=== PATIENT | female | born 1955 | race African-American/Black ===

== ENCOUNTER 2017-03-04 21:48 | Inpatient (IN) ==
[2017-03-04] MEDS ORDERED: hydrALAZINE 20 MG/1 ML VIAL IV STA (23:08)
[2017-03-05] MEDS ORDERED: hydrALAZINE 20 MG/1 ML VIAL ONE
[2017-03-05 00:14] LABS: Basophils % 0.3 % (0.0-0.8); Eosinophils # 0.3 10*3/uL (0.0-0.87); Eosinophils % 4.3 % (0.00-10.9); Hematocrit 46.4 VOL% (35.7-47.0); Hemoglobin 15.5 GM/DL (12.0-16.0); Immature Granulocytes % 0.2 %; Immature Granulocytes Absolute 0.01 #; Lymphocytes # 1.1 10*3/uL (1.4-4.0); Lymphocytes % 17.9 % (21.3-54.2); Mean Corpuscular HGB Conc 33.4 GM/DL (32-36); Mean Corpuscular Hemoglobin 29 PG (27-34); Mean Corpuscular Volume 87.4 FL (87-102); Mean Platelet Volume 9.1 FL (9.6-12.0); Monocytes # 0.7 10*3/uL (0.11-0.8); Monocytes % 11.7 % (1.7-12.7); Neutrophils # 3.9 10*3/uL (1.4-7.4); Neutrophils % 65.6 % (38.7-73.9); Platelet Count 226 T/CUMM (130-400); Red Blood Count 5.31 MC/CUMM (3.8-5.5); Red Cell Distribution Width 12.6 % (9.3-17.3); White Blood Count 5.9 T/CUMM (4-12)
[2017-03-05 00:26] LABS: Apearance,Urine CLOUDY (Clear); Bacteria,Urine Few /HPF (Few); Bilirubin,Urine Negative (Negative); Blood, Urine Negative (Negative); Glucose,Urine (UA) Negative (Negative); Ketones,Urine Negative (Negative); Mucus,Urine Occasional /LPF (Occasional); Nitrite,Urine Negative (Negative); Protein,Urine Negative; RBC,Urine 5 /HPF (0-4); Squamous Epithelial Cell,Urine Occasional /HPF (0-10); Urine Color Yellow (Yellow); Urine Specific Gravity 1.002 (1.001-1.035); Urine Urobilinogen < 2.0 EU/DL (0.2-1.0); WBC,Urine 3 /HPF (0-6)
[2017-03-05 00:31] LABS: PT Patient Result 10.1 SECS; Partial Thromboplastin Time 26.8 SECS (0-40)
[2017-03-05 00:48] LABS: Alanine Aminotransferase 39 U/L (13-56); Albumin 3.7 G/DL (3.4-5.0); Alkaline Phosphatase 182 U/L (45-117); Aspartate Amino Transferase 59 U/L (0-37); Blood Urea Nitrogen 8 MG/DL (7-18); Calcium 9.2 MG/DL (8.5-10.1); Glucose 88 MG/DL (74-106); Magnesium 1.9 MG/DL (1.8-2.4); Osmolality,Calculated 275.4 MOS/KG (273-304); Potassium 3.7 MMOL/L (3.5-5.1); Sodium 140 MMOL/L (136-145); Total Protein 7.5 G/DL (6.4-8.3); Troponin I Only < 0.015 NG/ML (0.00-0.045)
[2017-03-05] MEDS ORDERED: ALBUTEROL/IPRATROPIUM 3 ML NEB RESP TX STA (02:04)
[2017-03-05] MEDS ORDERED: SODIUM CHLORIDE 0.9% 500 ML IV STA (02:13)
[2017-03-05] MEDS ORDERED: ONDANSETRON 4 MG/2 ML VIAL IV PRN (02:48)
[2017-03-05] MEDS ORDERED: ACETAMINOPHEN 325 MG TABLET PO PRN (02:48)
[2017-03-05] MEDS ORDERED: methylPREDNISolone SOD SUC 125 MG/2 ML VIAL IV STA (02:51)
[2017-03-05] MEDS ORDERED: NITROGLYCERIN SL 0.4 MG TABLET SL PRN (03:04)
[2017-03-05] MEDS ORDERED: AZITHROMYCIN 500 MG VIAL IV ONE (03:38)
[2017-03-05] MEDS ORDERED: methylPREDNISolone SOD SUC 125 MG/2 ML VIAL ONE (03:38)
[2017-03-05] MEDS ORDERED: ENOXAPARIN 40 MG/0.4 ML SYRINGE ONE (03:38)
[2017-03-05] MEDS ORDERED: niCARdipine 25 MG/10 ML VIAL IV ONE ×3 (03:38→14:18)
[2017-03-05] MEDS: niCARdipine INJ 25 MG in SODIUM CHLORIDE 0.9% 240 ML IV SCH ×2 (04:05→20:45)
[2017-03-05] MEDS: AZITHROMYCIN INJ 500 MG in SODIUM CHLORIDE 0.9% 250 ML IV SCH (04:05)
[2017-03-05] MEDS: ENOXAPARIN 40 MG/0.4 ML SYRINGE SUBCUT SCH (04:05)
[2017-03-05 04:19] LABS: Basophils % 0.5 % (0.0-0.8); Eosinophils # 0.3 10*3/uL (0.0-0.87); Eosinophils % 4.4 % (0.00-10.9); Hematocrit 48.9 VOL% (35.7-47.0); Immature Granulocytes % 0.4 %; Immature Granulocytes Absolute 0.02 #; Lymphocytes # 1.1 10*3/uL (1.4-4.0); Mean Corpuscular HGB Conc 32.7 GM/DL (32-36); Mean Corpuscular Hemoglobin 29 PG (27-34); Mean Corpuscular Volume 89.6 FL (87-102); Mean Platelet Volume 9.2 FL (9.6-12.0); Monocytes # 0.6 10*3/uL (0.11-0.8); Monocytes % 11.1 % (1.7-12.7); Neutrophils # 3.7 10*3/uL (1.4-7.4); Neutrophils % 64.6 % (38.7-73.9); Platelet Count 226 T/CUMM (130-400); Red Blood Count 5.46 MC/CUMM (3.8-5.5); Red Cell Distribution Width 12.5 % (9.3-17.3); White Blood Count 5.7 T/CUMM (4-12)
[2017-03-05] MEDS: ALBUTEROL/IPRATROPIUM 3 ML NEB RESP TX SCH ×5 (04:19→20:17)
[2017-03-05 04:38] LABS: Calcium 9.1 MG/DL (8.5-10.1); Osmolality,Calculated 276.4 MOS/KG (273-304); Potassium 3.6 MMOL/L (3.5-5.1); Risk Ratio 3.23; Thyroid Stimulating Hormone 0.727 uIU/ml (0.358-3.74); VLDL CHOLESTEROL 21.2 MG/DL
[2017-03-05] MEDS: ASPIRIN CHEW 81 MG TABLET PO SCH (09:30)
[2017-03-05] MEDS ORDERED: ASPIRIN CHEW 81 MG TABLET PO ONE (09:33)
[2017-03-05] MEDS ORDERED: methylPREDNISolone SOD SUC 40 MG/1 ML VIAL ONE (09:33)
[2017-03-05] MEDS: methylPREDNISolone SOD SUC 40 MG/1 ML VIAL IV SCH ×2 (09:45→17:39)
[2017-03-05] MEDS: guaiFENesin 200 MG/10 ML UDCUP PO PRN (17:39)
[2017-03-05] MEDS: cefTRIAXone 1,000 MG in SYRINGE 1 EACH IV SCH (17:39)
[2017-03-06] MEDS: niCARdipine INJ 25 MG in SODIUM CHLORIDE 0.9% 240 ML IV SCH ×3 (02:05→08:34)
[2017-03-06] MEDS: methylPREDNISolone SOD SUC 40 MG/1 ML VIAL IV SCH ×3 (03:21→18:13)
[2017-03-06] MEDS: ENOXAPARIN 40 MG/0.4 ML SYRINGE SUBCUT SCH (03:23)
[2017-03-06] MEDS: AZITHROMYCIN INJ 500 MG in SODIUM CHLORIDE 0.9% 250 ML IV SCH (04:29)
[2017-03-06] MEDS: guaiFENesin 200 MG/10 ML UDCUP PO PRN ×2 (08:33→21:53)
[2017-03-06] MEDS: ASPIRIN CHEW 81 MG TABLET PO SCH (08:33)
[2017-03-06] MEDS ORDERED: ASPIRIN EC 81 MG TABLET PO SCH (11:00)
[2017-03-06] MEDS: LISINOPRIL/HCTZ 20-12.5 MG TABLET PO SCH (11:21)
[2017-03-06] MEDS ORDERED: METOPROLOL TARTRATE 25 MG TABLET PO SCH (12:00)
[2017-03-06] MEDS ORDERED: DILTIAZEM CD 180 MG CAPSULE PO SCH (14:30)
[2017-03-06] MEDS: cefTRIAXone 1,000 MG in SYRINGE 1 EACH IV SCH (18:14)
[2017-03-06] MEDS: DILTIAZEM CD 120 MG CAPSULE PO SCH (21:54)
[2017-03-07] MEDS: methylPREDNISolone SOD SUC 40 MG/1 ML VIAL IV SCH ×3 (02:30→17:55)
[2017-03-07] MEDS: AZITHROMYCIN INJ 500 MG in SODIUM CHLORIDE 0.9% 250 ML IV SCH (06:05)
[2017-03-07] MEDS: ENOXAPARIN 40 MG/0.4 ML SYRINGE SUBCUT SCH (06:05)
[2017-03-07] MEDS: LISINOPRIL/HCTZ 20-12.5 MG TABLET PO SCH (09:34)
[2017-03-07] MEDS: DILTIAZEM CD 120 MG CAPSULE PO SCH ×2 (09:34→20:55)
[2017-03-07] MEDS: ASPIRIN CHEW 81 MG TABLET PO SCH (09:34)
[2017-03-07] MEDS: cefTRIAXone 1,000 MG in SYRINGE 1 EACH IV SCH (17:56)
[2017-03-08] MEDS: guaiFENesin 200 MG/10 ML UDCUP PO PRN ×2 (00:34→19:12)
[2017-03-08] MEDS: AZITHROMYCIN INJ 500 MG in SODIUM CHLORIDE 0.9% 250 ML IV SCH (03:52)
[2017-03-08] MEDS: methylPREDNISolone SOD SUC 40 MG/1 ML VIAL IV SCH ×3 (03:52→21:12)
[2017-03-08] MEDS: ENOXAPARIN 40 MG/0.4 ML SYRINGE SUBCUT SCH (03:52)
[2017-03-08] MEDS: ASPIRIN CHEW 81 MG TABLET PO SCH (09:31)
[2017-03-08] MEDS: DILTIAZEM CD 120 MG CAPSULE PO SCH (09:31)
[2017-03-08] MEDS: LISINOPRIL/HCTZ 20-12.5 MG TABLET PO SCH (09:31)
[2017-03-08] MEDS: cefTRIAXone 1,000 MG in SYRINGE 1 EACH IV SCH (17:53)
[2017-03-08] MEDS: LEVALBUTEROL 0.63 MG/3 ML NEB RESP TX PRN (20:07)
[2017-03-08] MEDS: DILTIAZEM CD 240 MG CAPSULE PO SCH (21:11)
[2017-03-08] MEDS: ESCITALOPRAM 10 MG TABLET PO SCH (21:12)
[2017-03-09] MEDS: ENOXAPARIN 40 MG/0.4 ML SYRINGE SUBCUT SCH (04:40)
[2017-03-09] MEDS: AZITHROMYCIN INJ 500 MG in SODIUM CHLORIDE 0.9% 250 ML IV SCH (04:44)
[2017-03-09] MEDS: methylPREDNISolone SOD SUC 40 MG/1 ML VIAL IV SCH (09:33)
[2017-03-09] MEDS: ASPIRIN CHEW 81 MG TABLET PO SCH (09:33)
[2017-03-09] MEDS: LISINOPRIL/HCTZ 20-25 MG TABLET PO SCH (09:33)
[2017-03-09] MEDS: DILTIAZEM CD 240 MG CAPSULE PO SCH ×2 (09:33→21:07)
[2017-03-09] MEDS: LISINOPRIL/HCTZ 20-12.5 MG TABLET PO SCH (09:33)
[2017-03-09] MEDS: amLODIPine 5 MG TABLET PO SCH ×2 (12:06→21:07)
[2017-03-09] MEDS: predniSONE 20 MG TABLET PO SCH (13:46)
[2017-03-09] MEDS: cefTRIAXone 1,000 MG in SYRINGE 1 EACH IV SCH (18:09)
[2017-03-09] MEDS: guaiFENesin 200 MG/10 ML UDCUP PO PRN (21:07)
[2017-03-09] MEDS: ESCITALOPRAM 10 MG TABLET PO SCH (21:07)
[2017-03-09] MEDS: LEVALBUTEROL 0.63 MG/3 ML NEB RESP TX PRN (21:40)
[2017-03-10] MEDS: AZITHROMYCIN INJ 500 MG in SODIUM CHLORIDE 0.9% 250 ML IV SCH (03:54)
[2017-03-10] MEDS: ENOXAPARIN 40 MG/0.4 ML SYRINGE SUBCUT SCH (03:55)
[2017-03-10] MEDS: predniSONE 20 MG TABLET PO SCH (08:49)
[2017-03-10] MEDS: amLODIPine 5 MG TABLET PO SCH (08:49)
[2017-03-10] MEDS: DILTIAZEM CD 240 MG CAPSULE PO SCH (08:49)
[2017-03-10] MEDS: LISINOPRIL/HCTZ 20-25 MG TABLET PO SCH (08:49)
[2017-03-10] MEDS: ASPIRIN CHEW 81 MG TABLET PO SCH (08:50)
[2017-03-10] MEDS ORDERED: methylPREDNISolone SOD SUC 40 MG/1 ML VIAL IV SCH (09:00)
[2017-03-10 11:26] VITALS: BP 143/87
== END 2017-03-10 13:00 | disposition home or self-care (01) | DRG 191 ==
LOC: N.ED 21:48 → N.EDINP 03-05 02:48 → N.ICU 03-05 15:59 → N.TELES 03-06 15:45
PROVIDERS: ADMIT Internal Medicine; ATTEND Internal Medicine

== ENCOUNTER 2018-02-06 01:45 | Observation (INO) ==
[2018-02-06] MEDS ORDERED: cefTRIAXone 1,000 MG in SODIUM CHLORIDE 0.9% 100 ML IV STA (02:10)
[2018-02-06] MEDS ORDERED: methylPREDNISolone SOD SUC 125 MG/2 ML VIAL IV STA (02:10)
[2018-02-06] MEDS ORDERED: FUROSEMIDE 100 MG/10 ML VIAL IV STA (02:10)
[2018-02-06] MEDS ORDERED: ONDANSETRON 4 MG/2 ML VIAL IV STA (02:10)
[2018-02-06] MEDS ORDERED: SODIUM CHLORIDE 0.9% 500 ML IV STA (02:10)
[2018-02-06] MEDS ORDERED: ALBUTEROL 2.5 MG/3 ML NEB RESP TX SCH (02:30)
[2018-02-06 02:50] LABS: Basophils % 0.4 % (0.0-0.8); Eosinophils # 0.2 10*3/uL (0.0-0.87); Eosinophils % 1.7 % (0.00-10.9); Hematocrit 44.7 VOL% (35.7-47.0); Hemoglobin 14.8 GM/DL (12.0-16.0); Immature Granulocytes % 0.3 %; Immature Granulocytes Absolute 0.03 #; Lymphocytes # 1.1 10*3/uL (1.4-4.0); Lymphocytes % 10.8 % (21.3-54.2); Mean Corpuscular HGB Conc 33.1 GM/DL (32-36); Mean Corpuscular Hemoglobin 29 PG (27-34); Mean Corpuscular Volume 87.8 FL (87-102); Mean Platelet Volume 10.1 FL (9.6-12.0); Monocytes # 1.4 10*3/uL (0.11-0.8); Monocytes % 14.3 % (1.7-12.7); Neutrophils # 7.2 10*3/uL (1.4-7.4); Neutrophils % 72.5 % (38.7-73.9); Platelet Count 226 T/CUMM (130-400); Red Blood Count 5.09 MC/CUMM (3.8-5.5); Red Cell Distribution Width 13.7 % (9.3-17.3)
[2018-02-06] MEDS ORDERED: cefTRIAXone 1,000 MG VIAL ONE (02:57)
[2018-02-06 03:00] LABS: INR 0.9; PT Patient Result 10.3 SECS
[2018-02-06 03:20] LABS: Lactic Acid 1.7 MMOL/L (0.4-2.0)
[2018-02-06 03:40] LABS: Apearance,Urine CLEAR (Clear); Bilirubin,Urine Negative (Negative); Blood, Urine Negative (Negative); Glucose,Urine (UA) Negative (Negative); Ketones,Urine Negative (Negative); Mucus,Urine Occasional /LPF (Occasional); Nitrite,Urine Negative (Negative); Protein,Urine Negative; RBC,Urine <1 /HPF (0-4); Squamous Epithelial Cell,Urine Occasional /HPF (0-10); Urine Color Straw (Yellow); Urine Specific Gravity 1.005 (1.001-1.035); Urine Urobilinogen < 2.0 EU/DL (0.2-1.0); WBC,Urine 1 /HPF (0-6)
[2018-02-06 03:56] LABS: Albumin 3.4 G/DL (3.4-5.0); Bilirubin,Total 1.1 MG/DL (0.2-1.0); Calcium 9.5 MG/DL (8.5-10.1); Osmolality,Calculated 267.1 MOS/KG (273-304); Total Protein 8.5 G/DL (6.4-8.3)
[2018-02-06 03:57] LABS: Potassium 5.8 MMOL/L (3.5-5.1)
[2018-02-06] MEDS ORDERED: MORPHINE 4 MG/1 ML VIAL IV PRN (08:42)
[2018-02-06] MEDS ORDERED: ACETAMINOPHEN 325 MG TABLET PO PRN (08:42)
[2018-02-06] MEDS ORDERED: ONDANSETRON 4 MG/2 ML VIAL IV PRN (08:42)
[2018-02-06] MEDS ORDERED: BENZONATATE 100 MG CAPSULE PO ONE (08:47)
[2018-02-06] MEDS: SODIUM CHLORIDE 0.9% 1,000 ML IV SCH ×2 (09:25→23:10)
[2018-02-06] MEDS: AZITHROMYCIN INJ 500 MG in SODIUM CHLORIDE 0.9% 250 ML IV SCH (09:28)
[2018-02-06] MEDS: DOCUSATE SODIUM 100 MG CAPSULE PO SCH ×2 (09:30→21:14)
[2018-02-06] MEDS: guaiFENesin 200 MG/10 ML UDCUP PO PRN ×2 (09:30→17:15)
[2018-02-06] MEDS: cefTRIAXone 1,000 MG in SYRINGE 1 EACH IV SCH (09:30)
[2018-02-06] MEDS: PANTOPRAZOLE 40 MG TABLET PO SCH (09:31)
[2018-02-06] MEDS: methylPREDNISolone SOD SUC 40 MG/1 ML VIAL IV SCH ×2 (09:33→17:12)
[2018-02-06] MEDS: ENOXAPARIN 40 MG/0.4 ML SYRINGE SUBCUT SCH (09:34)
[2018-02-06] MEDS ORDERED: ALBUTEROL 2.5 MG/3 ML NEB RESP TX PRN (09:38)
[2018-02-06] MEDS ORDERED: NITROGLYCERIN SL 0.4 MG TABLET SL PRN (09:38)
[2018-02-06] MEDS: ALBUTEROL/IPRATROPIUM 3 ML NEB RESP TX SCH ×5 (10:53→22:51)
[2018-02-06] MEDS: Bevespi Aerosphere Inhaler IH SCH (21:14)
[2018-02-06] MEDS: METOPROLOL TARTRATE 25 MG TABLET PO SCH (21:14)
[2018-02-07] MEDS: methylPREDNISolone SOD SUC 40 MG/1 ML VIAL IV SCH ×3 (01:15→16:43)
[2018-02-07] MEDS: ALBUTEROL/IPRATROPIUM 3 ML NEB RESP TX SCH ×6 (02:45→23:28)
[2018-02-07 05:41] LABS: Basophils % 0.1 % (0.0-0.8); Hematocrit 39.9 VOL% (35.7-47.0); Hemoglobin 12.9 GM/DL (12.0-16.0); Immature Granulocytes % 0.9 %; Immature Granulocytes Absolute 0.16 #; Lymphocytes # 0.9 10*3/uL (1.4-4.0); Lymphocytes % 4.9 % (21.3-54.2); Mean Corpuscular HGB Conc 32.3 GM/DL (32-36); Mean Corpuscular Hemoglobin 29 PG (27-34); Mean Corpuscular Volume 89.7 FL (87-102); Mean Platelet Volume 9.5 FL (9.6-12.0); Monocytes % 5.3 % (1.7-12.7); Neutrophils # 16.2 10*3/uL (1.4-7.4); Neutrophils % 88.8 % (38.7-73.9); Platelet Count 226 T/CUMM (130-400); Red Blood Count 4.45 MC/CUMM (3.8-5.5); Red Cell Distribution Width 13.9 % (9.3-17.3); White Blood Count 18.2 T/CUMM (4-12)
[2018-02-07 05:50] LABS: Albumin 2.8 G/DL (3.4-5.0); Bilirubin,Total 0.4 MG/DL (0.2-1.0); Calcium 8.8 MG/DL (8.5-10.1); Potassium 3.7 MMOL/L (3.5-5.1); Risk Ratio 2.34; Total Protein 6.9 G/DL (6.4-8.3); VLDL CHOLESTEROL 10.4 MG/DL
[2018-02-07 05:54] LABS: Lymphocytes 4 % (20-55); Segmented Neutrophils 91 % (50-85); Total Cells Counted 100
[2018-02-07 05:55] LABS: Platelet Estimate Normal
[2018-02-07] MEDS: guaiFENesin 200 MG/10 ML UDCUP PO PRN ×2 (06:35→20:31)
[2018-02-07 07:11] LABS: HIV Antigen/Antibody Result Nonreactive (Nonreactive); Hepatitis B Surface Ag Quant < 0.10 Index; Hepatitis B Surface Ag Result Negative (Negative); Hepatitis C Virus Ab Quant < 0.02 Index; Hepatitis C Virus Ab Result Negative (Negative)
[2018-02-07] MEDS: ASPIRIN CHEW 81 MG TABLET PO SCH (09:47)
[2018-02-07] MEDS: DOCUSATE SODIUM 100 MG CAPSULE PO SCH ×2 (09:47→20:31)
[2018-02-07] MEDS: LISINOPRIL 20 MG TABLET PO SCH (09:48)
[2018-02-07] MEDS: amLODIPine 5 MG TABLET PO SCH (09:48)
[2018-02-07] MEDS: ENOXAPARIN 40 MG/0.4 ML SYRINGE SUBCUT SCH (09:48)
[2018-02-07] MEDS: METOPROLOL TARTRATE 25 MG TABLET PO SCH ×2 (09:48→20:31)
[2018-02-07] MEDS: PANTOPRAZOLE 40 MG TABLET PO SCH (09:49)
[2018-02-07] MEDS: cefTRIAXone 1,000 MG in SYRINGE 1 EACH IV SCH (09:58)
[2018-02-07] MEDS: BENZONATATE 100 MG CAPSULE PO PRN ×2 (10:17→20:33)
[2018-02-07] MEDS: AZITHROMYCIN INJ 500 MG in SODIUM CHLORIDE 0.9% 250 ML IV SCH (10:18)
[2018-02-07] MEDS: Bevespi Aerosphere Inhaler IH SCH ×2 (10:23→20:33)
[2018-02-08] MEDS: methylPREDNISolone SOD SUC 40 MG/1 ML VIAL IV SCH ×3 (00:55→17:02)
[2018-02-08] MEDS: ALBUTEROL/IPRATROPIUM 3 ML NEB RESP TX SCH ×6 (03:40→23:38)
[2018-02-08] MEDS: guaiFENesin 200 MG/10 ML UDCUP PO PRN ×2 (05:59→21:01)
[2018-02-08] MEDS: BENZONATATE 100 MG CAPSULE PO PRN ×2 (05:59→21:01)
[2018-02-08] MEDS: ASPIRIN CHEW 81 MG TABLET PO SCH (09:59)
[2018-02-08] MEDS: Bevespi Aerosphere Inhaler IH SCH ×2 (09:59→21:06)
[2018-02-08] MEDS: DOCUSATE SODIUM 100 MG CAPSULE PO SCH ×2 (09:59→21:01)
[2018-02-08] MEDS: ENOXAPARIN 40 MG/0.4 ML SYRINGE SUBCUT SCH (10:00)
[2018-02-08] MEDS: PANTOPRAZOLE 40 MG TABLET PO SCH (10:00)
[2018-02-08] MEDS: amLODIPine 5 MG TABLET PO SCH (10:00)
[2018-02-08] MEDS: LISINOPRIL 20 MG TABLET PO SCH (10:00)
[2018-02-08] MEDS: cefTRIAXone 1,000 MG in SYRINGE 1 EACH IV SCH (10:05)
[2018-02-08] MEDS: AZITHROMYCIN INJ 500 MG in SODIUM CHLORIDE 0.9% 250 ML IV SCH (10:13)
[2018-02-08] MEDS: METOPROLOL TARTRATE 25 MG TABLET PO SCH ×2 (10:13→21:01)
[2018-02-09] MEDS: methylPREDNISolone SOD SUC 40 MG/1 ML VIAL IV SCH ×4 (01:26→23:41)
[2018-02-09] MEDS: ALBUTEROL/IPRATROPIUM 3 ML NEB RESP TX SCH ×6 (03:32→23:54)
[2018-02-09] MEDS: cefTRIAXone 1,000 MG in SYRINGE 1 EACH IV SCH (09:24)
[2018-02-09] MEDS: METOPROLOL TARTRATE 25 MG TABLET PO SCH ×2 (09:25→21:03)
[2018-02-09] MEDS: AZITHROMYCIN INJ 500 MG in SODIUM CHLORIDE 0.9% 250 ML IV SCH (09:25)
[2018-02-09] MEDS: LISINOPRIL 20 MG TABLET PO SCH (09:25)
[2018-02-09] MEDS: ASPIRIN CHEW 81 MG TABLET PO SCH (09:25)
[2018-02-09] MEDS: DOCUSATE SODIUM 100 MG CAPSULE PO SCH ×2 (09:25→21:03)
[2018-02-09] MEDS: ENOXAPARIN 40 MG/0.4 ML SYRINGE SUBCUT SCH (09:25)
[2018-02-09] MEDS: PANTOPRAZOLE 40 MG TABLET PO SCH (09:25)
[2018-02-09] MEDS: amLODIPine 5 MG TABLET PO SCH (09:25)
[2018-02-09] MEDS: Bevespi Aerosphere Inhaler IH SCH ×2 (09:26→21:04)
[2018-02-09] MEDS: guaiFENesin 200 MG/10 ML UDCUP PO PRN ×3 (10:11→21:09)
[2018-02-09] MEDS: BENZONATATE 100 MG CAPSULE PO PRN (21:09)
[2018-02-10] MEDS: ALBUTEROL/IPRATROPIUM 3 ML NEB RESP TX SCH ×5 (03:23→19:40)
[2018-02-10 06:05] LABS: Basophils # 0.1 10*3/uL (0.0-0.2); Basophils % 0.4 % (0.0-0.8); Hematocrit 40.7 VOL% (35.7-47.0); Hemoglobin 13.1 GM/DL (12.0-16.0); Immature Granulocytes % 4.9 %; Immature Granulocytes Absolute 0.69 #; Lymphocytes % 6.9 % (21.3-54.2); Mean Corpuscular HGB Conc 32.2 GM/DL (32-36); Mean Corpuscular Hemoglobin 28 PG (27-34); Mean Corpuscular Volume 88.1 FL (87-102); Mean Platelet Volume 9.5 FL (9.6-12.0); Monocytes # 0.6 10*3/uL (0.11-0.8); Monocytes % 4.2 % (1.7-12.7); Neutrophils # 11.7 10*3/uL (1.4-7.4); Neutrophils % 83.6 % (38.7-73.9); Platelet Count 263 T/CUMM (130-400); Red Blood Count 4.62 MC/CUMM (3.8-5.5); Red Cell Distribution Width 13.9 % (9.3-17.3)
[2018-02-10 06:14] LABS: Calcium 8.9 MG/DL (8.5-10.1); Osmolality,Calculated 284.3 MOS/KG (273-304); Potassium 3.9 MMOL/L (3.5-5.1)
[2018-02-10] MEDS: DOCUSATE SODIUM 100 MG CAPSULE PO SCH ×2 (10:18→20:08)
[2018-02-10] MEDS: ASPIRIN CHEW 81 MG TABLET PO SCH (10:18)
[2018-02-10] MEDS: methylPREDNISolone SOD SUC 40 MG/1 ML VIAL IV SCH ×3 (10:18→23:53)
[2018-02-10] MEDS: Bevespi Aerosphere Inhaler IH SCH ×2 (10:18→20:09)
[2018-02-10] MEDS: ENOXAPARIN 40 MG/0.4 ML SYRINGE SUBCUT SCH (10:19)
[2018-02-10] MEDS: METOPROLOL TARTRATE 25 MG TABLET PO SCH ×2 (10:19→20:08)
[2018-02-10] MEDS: amLODIPine 5 MG TABLET PO SCH (10:19)
[2018-02-10] MEDS: LISINOPRIL 20 MG TABLET PO SCH (10:20)
[2018-02-10] MEDS: PANTOPRAZOLE 40 MG TABLET PO SCH (10:20)
[2018-02-10] MEDS: cefTRIAXone 1,000 MG in SYRINGE 1 EACH IV SCH (10:20)
[2018-02-10] MEDS: AZITHROMYCIN INJ 500 MG in SODIUM CHLORIDE 0.9% 250 ML IV SCH (10:21)
[2018-02-11] MEDS: ALBUTEROL/IPRATROPIUM 3 ML NEB RESP TX SCH ×4 (00:24→11:14)
[2018-02-11 05:38] LABS: Calcium 8.3 MG/DL (8.5-10.1); Osmolality,Calculated 281.4 MOS/KG (273-304); Potassium 3.9 MMOL/L (3.5-5.1)
[2018-02-11 05:46] LABS: Basophils # 0.1 10*3/uL (0.0-0.2); Basophils % 0.7 % (0.0-0.8); Hematocrit 41.7 VOL% (35.7-47.0); Hemoglobin 13.4 GM/DL (12.0-16.0); Immature Granulocytes % 6.9 %; Immature Granulocytes Absolute 0.98 #; Lymphocytes # 1.2 10*3/uL (1.4-4.0); Lymphocytes % 8.3 % (21.3-54.2); Mean Corpuscular HGB Conc 32.1 GM/DL (32-36); Mean Corpuscular Hemoglobin 29 PG (27-34); Mean Corpuscular Volume 88.9 FL (87-102); Mean Platelet Volume 9.4 FL (9.6-12.0); Monocytes # 0.8 10*3/uL (0.11-0.8); Monocytes % 5.3 % (1.7-12.7); Neutrophils # 11.2 10*3/uL (1.4-7.4); Neutrophils % 78.8 % (38.7-73.9); Platelet Count 285 T/CUMM (130-400); Red Blood Count 4.69 MC/CUMM (3.8-5.5); Red Cell Distribution Width 13.8 % (9.3-17.3); White Blood Count 14.2 T/CUMM (4-12)
[2018-02-11 06:14] LABS: Band Neutrophils 1 % (0-10); Hypochromasia 1+; Lymphocytes 6 % (20-55); Ovalocytes Slight; Platelet Estimate Adequate; Segmented Neutrophils 85 % (50-85); Total Cells Counted 100
[2018-02-11] MEDS: ENOXAPARIN 40 MG/0.4 ML SYRINGE SUBCUT SCH (09:33)
[2018-02-11] MEDS: DOCUSATE SODIUM 100 MG CAPSULE PO SCH (09:34)
[2018-02-11] MEDS: ASPIRIN CHEW 81 MG TABLET PO SCH (09:34)
[2018-02-11] MEDS: LISINOPRIL 20 MG TABLET PO SCH (09:34)
[2018-02-11] MEDS: amLODIPine 5 MG TABLET PO SCH (09:35)
[2018-02-11] MEDS: PANTOPRAZOLE 40 MG TABLET PO SCH (09:35)
[2018-02-11] MEDS: methylPREDNISolone SOD SUC 40 MG/1 ML VIAL IV SCH (09:39)
[2018-02-11] MEDS: cefTRIAXone 1,000 MG in SYRINGE 1 EACH IV SCH (09:42)
[2018-02-11] MEDS: AZITHROMYCIN INJ 500 MG in SODIUM CHLORIDE 0.9% 250 ML IV SCH (09:57)
[2018-02-11] MEDS: METOPROLOL TARTRATE 25 MG TABLET PO SCH (10:02)
[2018-02-11] MEDS: Bevespi Aerosphere Inhaler IH SCH (10:02)
[2018-02-11 13:17] VITALS: BP 157/93
== END 2018-02-11 14:00 | disposition home or self-care (01) ==
LOC: EDUNIT# → EDBD → N.ED 01:45 → N.EDINP 01:45 → N.3E 07:15
PROVIDERS: ADMIT Family Medicine; ATTEND Family Medicine

== ENCOUNTER 2020-07-12 10:20 | Inpatient (IN) ==
[2020-07-12] MEDS ORDERED: MAGNESIUM SULF RIDER 4 GM/100 ML PREMIX IV PRN (11:56)
[2020-07-12] MEDS ORDERED: POTASSIUM CHLORIDE 20 MEQ TABLET PO PRN (11:56)
[2020-07-12] MEDS ORDERED: POTASSIUM CHLORIDE RIDER 10 MEQ/100 ML PREMIX IV PRN (11:56)
[2020-07-12] MEDS ORDERED: MAGNESIUM SULF RIDER 2 GM/50 ML PREMIX IV PRN (11:56)
[2020-07-12] MEDS ORDERED: ACETAMINOPHEN 325 MG TABLET PO PRN (11:56)
[2020-07-12] MEDS ORDERED: ONDANSETRON 4 MG/2 ML VIAL IV PRN (11:56)
[2020-07-12] MEDS ORDERED: NITROGLYCERIN SL 0.4 MG TABLET SL PRN (11:59)
[2020-07-12 12:57] LABS: Basophils % 0.3 % (0.0-0.8); Eosinophils # 0.3 10*3/uL (0.0-0.87); Eosinophils % 2.2 % (0.00-10.9); Hematocrit 48.5 VOL% (35.7-47.0); Immature Granulocytes Absolute 0.11 #; Lymphocytes # 1.9 10*3/uL (1.4-4.0); Lymphocytes % 16.8 % (21.3-54.2); Mean Corpuscular Volume 88.7 FL (87-102); Mean Platelet Volume 8.7 FL (9.6-12.0); Neutrophils % 64.7 % (38.7-73.9); Platelet Count 280 T/CUMM (130-400); Red Blood Count 5.47 MC/CUMM (3.8-5.5); Red Cell Distribution Width 13.9 % (9.3-17.3); White Blood Count 11.2 T/CUMM (4-12)
[2020-07-12 13:16] LABS: Albumin 3.1 G/DL (3.4-5.0); Calcium 8.7 MG/DL (8.5-10.1); Potassium 3.5 MMOL/L (3.5-5.1); Total Protein 7.2 G/DL (6.4-8.2)
[2020-07-12] MEDS: cefTRIAXone 1,000 MG in SODIUM CHLORIDE 0.9% 100 ML IV SCH (13:17)
[2020-07-12] MEDS: SODIUM CHLORIDE 0.9% 1,000 ML IV SCH (13:18)
[2020-07-12] MEDS: methylPREDNISolone SOD SUC 40 MG/1 ML VIAL IV SCH (13:18)
[2020-07-12] MEDS: ALBUTEROL/IPRATROPIUM 3 ML NEB RESP TX SCH ×2 (14:27→19:10)
[2020-07-12] MEDS ORDERED: DICLOFENAC 1% GEL 100 GM TUBE TOP PRN (15:10)
[2020-07-12] MEDS ORDERED: diphenhydrAMINE CAP 25 MG CAPSULE PO PRN (15:10)
[2020-07-12] MEDS: hydrALAZINE 25 MG TABLET PO SCH ×2 (17:26→21:00)
[2020-07-12] MEDS: NYSTATIN 500,000 UNIT/5 ML UDCUP SWISH/SWAL SCH ×2 (17:26→20:59)
[2020-07-12 18:38] LABS: Bilirubin,Urine Negative (Negative); Blood, Urine Negative (Negative); Glucose,Urine (UA) 50 mg/dL (Negative); Ketones,Urine Negative (Negative); Nitrite,Urine Negative (Negative); Protein,Urine Negative; Squamous Epithelial Cell,Urine Occasional /HPF (0-10); Urine Appearance CLEAR (Clear); Urine Color Yellow (Yellow); Urine Specific Gravity 1.028 (1.001-1.035); Urine Urobilinogen < 2.0 EU/DL (0.2-1.0)
[2020-07-12] MEDS ORDERED: ALBUTEROL 2.5 MG/3 ML NEB RESP TX PRN (19:04)
[2020-07-12] MEDS: BUDESONIDE/FORMOTEROL 160-4.5 INHALER 6 GM INH SCH (20:59)
[2020-07-12] MEDS: METOPROLOL TARTRATE 25 MG TABLET PO SCH (20:59)
[2020-07-12] MEDS: DOCUSATE SODIUM 100 MG CAPSULE PO SCH (21:00)
[2020-07-12] MEDS: NON-FORMULARY MEDICATION (Budesonide-Glycopyr-Formoterol [Breztri Aerosphere] 160-9-4.8 mc INH SCH (21:00)
[2020-07-13] MEDS: methylPREDNISolone SOD SUC 40 MG/1 ML VIAL IV SCH ×2 (00:51→14:07)
[2020-07-13 04:24] LABS: Basophils % 0.2 % (0.0-0.8); Hemoglobin 14.6 GM/DL (12.0-16.0); Immature Granulocytes % 0.9 %; Immature Granulocytes Absolute 0.06 #; Lymphocytes # 0.8 10*3/uL (1.4-4.0); Lymphocytes % 11.6 % (21.3-54.2); Mean Corpuscular HGB Conc 32.4 GM/DL (32-36); Mean Corpuscular Volume 88.2 FL (87-102); Mean Platelet Volume 9.2 FL (9.6-12.0); Monocytes % 3.8 % (1.7-12.7); Neutrophils % 83.5 % (38.7-73.9); Platelet Count 240 T/CUMM (130-400); Red Cell Distribution Width 13.8 % (9.3-17.3); White Blood Count 6.6 T/CUMM (4-12)
[2020-07-13 04:34] LABS: Albumin 2.9 G/DL (3.4-5.0); Bilirubin,Total 0.4 MG/DL (0.2-1.0); Calcium 8.7 MG/DL (8.5-10.1); Osmolality,Calculated 276.7 MOS/KG (273-304); Potassium 4.2 MMOL/L (3.5-5.1); Total Protein 6.8 G/DL (6.4-8.2)
[2020-07-13] MEDS: ALBUTEROL/IPRATROPIUM 3 ML NEB RESP TX SCH ×6 (06:04→19:15)
[2020-07-13] MEDS: METOPROLOL TARTRATE 25 MG TABLET PO SCH ×2 (08:51→21:18)
[2020-07-13] MEDS: BUDESONIDE/FORMOTEROL 160-4.5 INHALER 6 GM INH SCH ×2 (08:51→21:18)
[2020-07-13] MEDS: PANTOPRAZOLE 40 MG TABLET PO SCH (08:52)
[2020-07-13] MEDS: ASPIRIN CHEW 81 MG TABLET PO SCH (08:52)
[2020-07-13] MEDS: hydrALAZINE 25 MG TABLET PO SCH ×3 (08:52→21:18)
[2020-07-13] MEDS: amLODIPine 10 MG TABLET PO SCH (08:52)
[2020-07-13] MEDS: NON-FORMULARY MEDICATION (Budesonide-Glycopyr-Formoterol [Breztri Aerosphere] 160-9-4.8 mc INH SCH ×2 (08:53→21:19)
[2020-07-13] MEDS: DOCUSATE SODIUM 100 MG CAPSULE PO SCH ×2 (08:53→21:18)
[2020-07-13] MEDS: NYSTATIN 500,000 UNIT/5 ML UDCUP SWISH/SWAL SCH ×4 (08:54→21:18)
[2020-07-13] MEDS: cefTRIAXone 1,000 MG in SODIUM CHLORIDE 0.9% 100 ML IV SCH (14:06)
[2020-07-13] MEDS: SODIUM CHLORIDE 0.9% 1,000 ML IV SCH (16:13)
[2020-07-14] MEDS: ALBUTEROL/IPRATROPIUM 3 ML NEB RESP TX SCH ×7 (00:09→23:55)
[2020-07-14] MEDS: PANTOPRAZOLE 40 MG TABLET PO SCH (09:12)
[2020-07-14] MEDS: BUDESONIDE/FORMOTEROL 160-4.5 INHALER 6 GM INH SCH ×2 (09:12→20:56)
[2020-07-14] MEDS: DOCUSATE SODIUM 100 MG CAPSULE PO SCH ×2 (09:12→20:56)
[2020-07-14] MEDS: ASPIRIN CHEW 81 MG TABLET PO SCH (09:12)
[2020-07-14] MEDS: amLODIPine 10 MG TABLET PO SCH (09:13)
[2020-07-14] MEDS: predniSONE 20 MG TABLET PO SCH (09:13)
[2020-07-14] MEDS: METOPROLOL TARTRATE 25 MG TABLET PO SCH ×2 (09:13→20:57)
[2020-07-14] MEDS: NYSTATIN 500,000 UNIT/5 ML UDCUP SWISH/SWAL SCH ×4 (09:13→20:58)
[2020-07-14] MEDS: hydrALAZINE 25 MG TABLET PO SCH ×3 (09:13→20:57)
[2020-07-14] MEDS: NON-FORMULARY MEDICATION (Budesonide-Glycopyr-Formoterol [Breztri Aerosphere] 160-9-4.8 mc INH SCH ×2 (09:19→21:01)
[2020-07-14] MEDS: cefTRIAXone 1,000 MG in SODIUM CHLORIDE 0.9% 100 ML IV SCH (13:19)
[2020-07-15] MEDS: ALBUTEROL/IPRATROPIUM 3 ML NEB RESP TX SCH ×6 (03:51→23:55)
[2020-07-15] MEDS: NON-FORMULARY MEDICATION (Budesonide-Glycopyr-Formoterol [Breztri Aerosphere] 160-9-4.8 mc INH SCH ×2 (09:49→21:09)
[2020-07-15] MEDS: METOPROLOL TARTRATE 25 MG TABLET PO SCH ×2 (09:49→21:09)
[2020-07-15] MEDS: ASPIRIN CHEW 81 MG TABLET PO SCH (09:49)
[2020-07-15] MEDS: predniSONE 20 MG TABLET PO SCH (09:49)
[2020-07-15] MEDS: hydrALAZINE 25 MG TABLET PO SCH ×3 (09:49→21:09)
[2020-07-15] MEDS: amLODIPine 10 MG TABLET PO SCH (09:49)
[2020-07-15] MEDS: PANTOPRAZOLE 40 MG TABLET PO SCH (09:49)
[2020-07-15] MEDS: DOCUSATE SODIUM 100 MG CAPSULE PO SCH ×2 (09:50→21:08)
[2020-07-15] MEDS: NYSTATIN 500,000 UNIT/5 ML UDCUP SWISH/SWAL SCH ×4 (09:50→21:08)
[2020-07-15] MEDS: BUDESONIDE/FORMOTEROL 160-4.5 INHALER 6 GM INH SCH ×2 (09:50→21:08)
[2020-07-15] MEDS: cefTRIAXone 1,000 MG in SODIUM CHLORIDE 0.9% 100 ML IV SCH (13:43)
[2020-07-16] MEDS: ALBUTEROL/IPRATROPIUM 3 ML NEB RESP TX SCH ×6 (04:30→23:24)
[2020-07-16 06:31] LABS: Basophils % 0.2 % (0.0-0.8); Eosinophils % 0.1 % (0.00-10.9); Hemoglobin 14.3 GM/DL (12.0-16.0); Immature Granulocytes % 0.7 %; Immature Granulocytes Absolute 0.09 #; Lymphocytes # 2.1 10*3/uL (1.4-4.0); Mean Corpuscular HGB Conc 32.5 GM/DL (32-36); Mean Corpuscular Volume 89.2 FL (87-102); Mean Platelet Volume 9.4 FL (9.6-12.0); Platelet Count 241 T/CUMM (130-400); Red Blood Count 4.93 MC/CUMM (3.8-5.5); Red Cell Distribution Width 14.2 % (9.3-17.3); White Blood Count 13.1 T/CUMM (4-12)
[2020-07-16 06:45] LABS: Calcium 8.6 MG/DL (8.5-10.1); Osmolality,Calculated 282.1 MOS/KG (273-304); Potassium 3.6 MMOL/L (3.5-5.1)
[2020-07-16] MEDS: BUDESONIDE/FORMOTEROL 160-4.5 INHALER 6 GM INH SCH ×2 (08:45→21:25)
[2020-07-16] MEDS: amLODIPine 10 MG TABLET PO SCH (08:46)
[2020-07-16] MEDS: NYSTATIN 500,000 UNIT/5 ML UDCUP SWISH/SWAL SCH ×4 (08:46→21:26)
[2020-07-16] MEDS: PANTOPRAZOLE 40 MG TABLET PO SCH (08:47)
[2020-07-16] MEDS: hydrALAZINE 25 MG TABLET PO SCH ×3 (08:47→21:26)
[2020-07-16] MEDS: predniSONE 20 MG TABLET PO SCH (08:47)
[2020-07-16] MEDS: DOCUSATE SODIUM 100 MG CAPSULE PO SCH ×2 (08:47→21:26)
[2020-07-16] MEDS: ASPIRIN CHEW 81 MG TABLET PO SCH (08:47)
[2020-07-16] MEDS: METOPROLOL TARTRATE 25 MG TABLET PO SCH ×2 (08:47→21:25)
[2020-07-16] MEDS: NON-FORMULARY MEDICATION (Budesonide-Glycopyr-Formoterol [Breztri Aerosphere] 160-9-4.8 mc INH SCH ×2 (08:48→21:26)
[2020-07-16] MEDS: cefTRIAXone 1,000 MG in SODIUM CHLORIDE 0.9% 100 ML IV SCH (16:18)
[2020-07-17] MEDS: ALBUTEROL/IPRATROPIUM 3 ML NEB RESP TX SCH ×3 (03:02→11:20)
[2020-07-17] MEDS: ASPIRIN CHEW 81 MG TABLET PO SCH (10:06)
[2020-07-17] MEDS: DOCUSATE SODIUM 100 MG CAPSULE PO SCH (10:06)
[2020-07-17] MEDS: NYSTATIN 500,000 UNIT/5 ML UDCUP SWISH/SWAL SCH ×2 (10:06→12:01)
[2020-07-17] MEDS: BUDESONIDE/FORMOTEROL 160-4.5 INHALER 6 GM INH SCH (10:06)
[2020-07-17] MEDS: hydrALAZINE 25 MG TABLET PO SCH ×2 (10:06→14:33)
[2020-07-17] MEDS: METOPROLOL TARTRATE 25 MG TABLET PO SCH (10:07)
[2020-07-17] MEDS: amLODIPine 10 MG TABLET PO SCH (10:07)
[2020-07-17] MEDS: PANTOPRAZOLE 40 MG TABLET PO SCH (10:07)
[2020-07-17] MEDS: predniSONE 20 MG TABLET PO SCH (10:07)
[2020-07-17] MEDS: NON-FORMULARY MEDICATION (Budesonide-Glycopyr-Formoterol [Breztri Aerosphere] 160-9-4.8 mc INH SCH (10:08)
[2020-07-17 12:01] VITALS: BP 137/82
[2020-07-17] MEDS: cefTRIAXone 1,000 MG in SODIUM CHLORIDE 0.9% 100 ML IV SCH (12:02)
== END 2020-07-17 15:50 | disposition home health service (06) | DRG 191 ==
LOC: N.3E
PROVIDERS: ADMIT Family Medicine; ATTEND Family Medicine